=== PATIENT | female | born 1990 | race Hispanic/Latino ===

== ENCOUNTER 2017-06-29 15:04 | Outpatient (CLI) | payer BC, OTHER ==
--- NOTE | 2017-06-29 18:26 | ULT ---
OBSTETRIC SONOGRAM: History: 2nd trimester , evaluation. FINDINGS: Multiple transabdominal sonographic views of the gravid uterus show a single intrauterine gestation in breech presentation. The cervix is closed and 5.5 cm in length. Grade 0 placenta is anterior and fundal. Amniotic fluid is within normal limits. 3 vessel cord shows a normal insertion. Heart motion is demonstrated at 150 beats/minute. spine and kidneys are intact as visualized. No gross int racranial abnormalities are apparent. Measurements are as follows: BPD 20 weeks 3 days HC 20 weeks 0 days AC 20 weeks 4 days FL 20 weeks 0 day Estimated date of delivery based on today's sonogram is 18. [place] percentile equals 24%. IMPRESSION: 1. Single viable intrauterine gestation with estimated gestational age based on today's sonogram of 20 weeks 0 days. POS: TRISTAN
== END 2017-06-29 15:05 | disposition home or self-care (01) ==
LOC: ULT 15:04
PROVIDERS: ATTEND Family Medicine
DX: Z34.92 Encounter for supervision of normal pregnancy, unspecified, second trimester (principal); Z3A.20 20 weeks gestation of pregnancy
CPT/HCPCS: 76805

== ENCOUNTER 2017-11-03 12:13 | Day surgery (SDC) | payer OTHER ==
[2017-11-03 12:58] VITALS: BP 106/62; TEMP 98.3
[2017-11-03 12:59] VITALS: BMI 30.7
--- NOTE | 2017-11-03 15:20 | PDOC.LDHP ---
Labor and Delivery H&P Chief complaint: contractions HPI: 27 y/o at 38w3d, patient of Sandra Wesley, presents with ctx and pelvic pressure since last night. Denies VB, LOF, or decreased fm. ROS neg for HEENT, cv, pulm, gi, gu, neuro, psych, skin, musculoskeletal, or constitutional sx other than mentioned above. OB History Details: 1 prior term Current complications: gestational diabetes Past Medical History: None Current medications: pre- vitamins Previous surgical history: other (I&D for breast abscess) Allergies/Adverse Reactions: Allergies Allergy/AdvReac Type Severity Reaction Status Date / Time No Known Allergies Allergy Verified 01/09/16 23:11 Social history: none - Physical Exam Vital signs reviewed and normal: yes General: NAD, resting Lungs: nonlabored breathing Abdomen: gravid Extremeties: no edema FHT: category 1 (135, mod variability, + accels, no decels) [place] contractions every: 3 mins - Vaginal Exam cm dilated: 2 (unchanged after 2 hours) Effacement: 50% Station: -3 - Assessment 27 y/o at 38w3d with no e/o active labor. status reassuring with reactive NST. - Plan -: D/c home with precautions. Advised to keep all appointments.
== END 2017-11-03 15:02 | disposition home or self-care (01) ==
LOC: L&D/OP 12:13
PROVIDERS: ATTEND Family Medicine
DX: O47.1 False labor at or after 37 completed weeks of gestation (principal); O24.419 Gestational diabetes mellitus in pregnancy, unspecified control; Z79.899 Other long term (current) drug therapy; Z3A.38 38 weeks gestation of pregnancy
CPT/HCPCS: 99283

== ENCOUNTER 2017-11-06 06:15 | Inpatient (IN) | payer MEDICAID, OTHER, SELFPAY ==
[2017-11-06] MEDS: Lactated Ringer's 1,000 ML IV SCH ×2 (06:30→07:27)
[2017-11-06] MEDS ORDERED: Promethazine HCl 25 MG/ML VIAL IM PRN (07:01)
[2017-11-06] MEDS ORDERED: HYDROcodone/Acetaminophen 5/325 mg Tablet PO PRN ×3 (07:01→11:39)
[2017-11-06] MEDS ORDERED: Lidocaine 1% (PF) 30 ML VIAL SC PRN (07:01)
[2017-11-06] MEDS ORDERED: Ibuprofen 800 MG TAB PO PRN (07:01)
[2017-11-06] MEDS ORDERED: LR / Pitocin 40 units/1000 ml 1,000 ML IV PRN (07:01)
[2017-11-06 07:06] VITALS: BMI 30.7
--- NOTE | 2017-11-06 07:13 | PDOC.EVN ---
Event Note - Event Note Event Note: Admission for Dr Sandra Arteaga. She has been notified of the patient's arrival. I was asked to place orders for her. Direct admit to Dr Wesley..active labor at 7cm. Admitted at 0700 BRIEF ADMIT H&P for Dr Luis Armando Wesley: HPI: Here for CTXs. 27 yo G3 with SAB x1, GDM not compliant with metformin use, GBS neg...HX of prior . EGA now 39.4 weeks. Allergies: none Surg: Breast abscess I&D Physical: Vitals 106/62, 82, 98.6 Monitor: moderate variability, occasional mild variables CONTRACTIONS: every 2 minutes or so Admit exam: 6-7cm, cephalic. Assessment/Plan: Active phase of labor, multip. Gestational DM. Admit for Dr Arteaga. Pain control. Await spont progress.
[2017-11-06] MEDS ORDERED: Bupivacaine 0.5% 20 ML, Fentanyl 400 MCG in Sodium Chloride 0.9% 72 ML EPIDURAL SCH (07:15)
[2017-11-06 07:29] LABS: Hemoglobin 15.6 g/dL (12.0-16.0); Mean Corpuscular HGB CONC 33.6 g/dL (32.0-36.0); Mean Corpuscular Volume 89.2 fl (81.0-99.0); Mean Platelet Volume 8.3 fL (7.4-10.4); Platelet Count 258 thou/uL (130-400); Red Blood Cell (RBC) Count 5.22 mill/uL (4.20-5.40); White Blood Cell (WBC) Count 11.6 thou/uL (4.8-10.8)
[2017-11-06 08:00] LABS: HBSAg Index 0.34 S/CO (0-0.99); HIV (1/2) Antibody/Antigen Non-Reactive (NonReactive); HIV 1/2 INDEX 0.15 S/CO (<1.00); Hep B Surf Ag Non-Reactive S/CO (NonReactive); Syphilis Antibody Nonreactive (Nonreactive); Syphilis Antibody Index 0.03 S/CO (<1.00 Non-Reactive)
[2017-11-06] MEDS ORDERED: Lactated Ringer's 500 ML IV PRN (08:39)
[2017-11-06] MEDS ORDERED: Naloxone HCl 0.4 mg/ml Vial IVP PRN ×2 (08:39)
[2017-11-06] MEDS ORDERED: ePHEDrine/0.9% NaCl/PF SYRINGE 50 mg/10 ml SLOW IVP PRN (08:39)
[2017-11-06] MEDS ORDERED: diphenhydrAMINE 50 MG/ML VIAL IVP PRN (08:39)
[2017-11-06] MEDS ORDERED: Eucerin (Mineral Oil/Petrolatum,White) 30 gm Jar TOP PRN (08:39)
[2017-11-06] MEDS ORDERED: Communication Order-Pharmacy FS SCH (08:45)
[2017-11-06] MEDS ORDERED: Fentanyl 4mcg/Marcaine 0.1% Cassette 100 ML EPIDURAL SCH (08:45)
[2017-11-06] MEDS ORDERED: Ondansetron HCl/PF 4 MG/2 ML Vial IVP PRN (11:39)
[2017-11-06] MEDS ORDERED: diphenhydrAMINE 25 MG CAP PO PRN (11:39)
[2017-11-06] MEDS ORDERED: Benzocaine/Menthol 20-0.5% 60 ML CAN TOP PRN (11:39)
[2017-11-06] MEDS ORDERED: LR / Pitocin 40 units/1000 ml 1,000 ML IV SCH (11:39)
[2017-11-06] MEDS ORDERED: Milk Of Magnesia 30 ML UDCUP PO PRN (11:39)
[2017-11-06] MEDS ORDERED: Acetaminophen/Codeine 30-300mg Tablet PO PRN (11:39)
[2017-11-06] MEDS ORDERED: Preparation H Ointment 28 GM TUBE PR PRN (11:39)
[2017-11-06] MEDS ORDERED: Bisacodyl 10 MG SUPP PR PRN (11:39)
[2017-11-06] MEDS ORDERED: Lanolin Ointment 7 GM TUBE TOP PRN (11:39)
[2017-11-06] MEDS: Ibuprofen 800 MG TAB PO SCH ×2 (11:58→21:31)
[2017-11-06] MEDS: Docusate Calcium (SURFAK) 240 MG CAP PO SCH (21:30)
[2017-11-07] MEDS: Ibuprofen 800 MG TAB PO SCH (05:43)
[2017-11-07] MEDS ORDERED: Prenatal Vitamin 1 TAB PO SCH (09:00)
[2017-11-07 09:04] VITALS: BP 99/60; TEMP 98.1
[2017-11-07] MEDS: Docusate Calcium (SURFAK) 240 MG CAP PO SCH (09:29)
== END 2017-11-07 13:05 | disposition home or self-care (01) | DRG 775 ==
LOC: L&D/OP 06:15 → L&D 06:59 → 3SW 11:21
PROVIDERS: ADMIT Family Medicine; ATTEND Family Medicine
PROC: 10E0XZZ Delivery of Products of Conception, External Approach (ICD-10-PCS; principal; 2017-11-06)
DX: O24.425 Gestational diabetes mellitus in childbirth, controlled by oral hypoglycemic drugs (principal); Z37.0 Single live birth; Z3A.39 39 weeks gestation of pregnancy; Z91.14 Patient's other noncompliance with medication regimen
CPT/HCPCS: 36416; 51702; 85027; 86780; 87340; 87389; 99285; J0595; J2001; J3010; J3490; J7050